=== PATIENT | male | born 1965 ===

== ENCOUNTER → 2025-07-12 10:19 | Outpatient (BNVA) | payer OTHER, SELFPAY | PROVIDERS: Referring Provider Family Medicine; Visit Provider Internal Medicine Cardiovascular Disease | DX: R07.9 Chest pain, unspecified (principal); I25.10 Atherosclerotic heart disease of native coronary artery without angina pectoris; E78.2 Mixed hyperlipidemia; Z82.49 Family history of ischemic heart disease and other diseases of the circulatory system; I77.810 Thoracic aortic ectasia; I45.10 Unspecified right bundle-branch block; I47.10 Supraventricular tachycardia, unspecified; Z87.891 Personal history of nicotine dependence | CPT/HCPCS: 99204 ==

== ENCOUNTER → 2025-08-23 09:30 | Outpatient (BNVA) | payer OTHER, SELFPAY | PROVIDERS: Referring Provider Family Medicine; Visit Provider Internal Medicine Cardiovascular Disease | DX: I25.118 Atherosclerotic heart disease of native coronary artery with other forms of angina pectoris (principal); E78.2 Mixed hyperlipidemia; R07.9 Chest pain, unspecified; Z82.49 Family history of ischemic heart disease and other diseases of the circulatory system; I77.819 Aortic ectasia, unspecified site; I45.10 Unspecified right bundle-branch block; I47.10 Supraventricular tachycardia, unspecified; Z87.891 Personal history of nicotine dependence | CPT/HCPCS: 36415; 80048; 85025; 85610; 93005; 99213 ==

== ENCOUNTER 2025-08-31 06:08 | Outpatient (CLI) | payer OTHER, SELFPAY ==
[2025-08-31] VITALS (17 sets, daily range): BP systolic 105–173; BP diastolic 67–125; PULSE 53–127; RESP 10–24; TEMP 36.4–37; O2SAT 94–98; BMI 33.3
--- NOTE | 2025-08-31 06:00 | XACV_ITS ---
Ht: 173 cm Wt: 99 kg BSA: 2.22 m2 Gender: Male : 1965 Any Known Allergies: Penicillins Exam Priority: Routine Indication(s): - Unstable angina Procedure(s): Procedure Description: Diagnostic procedure Procedure Description: PCI procedure Procedure Description: Left Heart Catheterization Procedure Description: Left ventriculography Procedure Description: Drug Eluting Coronary Stent Procedure Description: PTCA Procedure Description: Miscellaneous Procedure Description: ACT Procedure Description: Coronary Angiography Adolph MONTEIRO; Diagnostic Cath Status: Elective Diagnostic Findings * Left Main has no disease. * Left Anterior Descending has no disease. * Proximal Right Coronary Artery: severe 90% stenosis, JASBIR: 3 flow. * Mid Right Coronary Artery: obstructive 70% stenosis, JASBIR: 3 flow. * Mid Circumflex: obstructive 70% stenosis, JASBIR: 3 flow. * 1st Diagonal: severe 90% stenosis, JASBIR: 3 flow. * Coronary angiography shows right dominance. PCI Status: Elective PCI Indication: New Onset Angina <= 2 months Interventional Findings * Proximal Right Coronary Artery: 90% stenosis treated with a AB TREK 2.50X20 RX BALLOON, MDT R HOLLAND 3.0X15 SHELLI, and MDT NC EUPHORA RX [id number] BALLOON. 0% residual stenosis, JASBIR: 3 flow. * Mid Right Coronary Artery: 70% stenosis treated with a AB TREK 2.50X20 RX BALLOON, MDT R HOLLAND 3.0X38 SHELLI, and MDT NC EUPHORA RX [id number] BALLOON. 0% residual stenosis, JASBIR: 3 flow. Conclusions 1. There is severe coronary artery disease with two vessel disease. 2. Normal left ventricular systolic function. Ejection fraction of 55%. 3. Proximal Right Coronary Artery was treated with a Balloon, Drug Eluting Stent, and Balloon. 4. Mid Right Coronary Artery was treated with a Balloon, Drug Eluting Stent, and Balloon. Recommendations * 1-Return to inpatient for close monitoring and routine cath care 2-Risk factor modification for secondary prevention 3-Statin and aspirin 81 mg life-long, if tolerated 4-Patient was pre-loaded with 600 mg of Plavix, continue Plavix 75mg p.o. daily for at least one year. We will assess at the end of one year again to continue if further or not 5-Continue optimal medical management, assess diagonal and mid circumflex moderate lesion with stress test and 3 to 4 months on optimal medical management 6-Follow up with Dr. Farfan in four weeks and your primary care in 10 days. Diagnostic RX Recommendation: PCI w/o planned CABG Ventriculography Ejection Fraction: 55.0 % Pressures Phase:Rest AO : 134 / 85 ( 107 ) @ 9:09:00 AM 121 / 92 ( 108 ) @ 9:10:00 AM 144 / 93 ( 113 ) @ 9:30:00 AM 146 / 103 ( 124 ) @ 9:31:00 AM 148 / 102 ( 123 ) @ 9:31:00 AM 160 / 105 ( 127 ) @ 9:32:00 AM 136 / 110 ( 114 ) @ 9:35:00 AM 141 / 108 ( 122 ) @ 9:46:00 AM 321 / 276 ( 163 ) @ 9:49:00 AM 193 / 105 ( 139 ) @ 9:58:00 AM 196 / 105 ( 146 ) @ 9:58:00 AM LV : 185 / 13 / 34 @ 9:56:00 AM 196 / 6 / 44 @ 9:58:00 AM Valves Phase:DefaultPhase AV : 0.0 @ 9:09:36 AM Clinical Evaluation EBL: 5mL-10mL Procedural Details Procedure Consent Obtained. Pre-Procedure Time Out. Identified patient by full name and date of as verbalized by the patient/guarantor. Does the consent match the physician's order: Yes. Accurate & Complete Informed Consent: Yes. Inpatient/Outpatient History & Physical on Chart: Yes. If H&P is completed, is and addenduem needed: No; If yes, is the addendum complete: N/A. Visualize and Verify Site with Patient/Guarantor: N/A. Relevant Radiology Images available: N/A. The risks, benefits, and alternatives of sedation and/or procedure were discussed by physician. The patient agrees to continue. Procedure started. [facility] Clinical Fraility Score: 3: Managing Well. 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 Chest Pain Symptom Assessment: Typical Angina Symptoms. Cardiovascular Instability: No. Correct patient, site and procedure confirmed by cath team. Current diagnosis: Angina; Abnormal CTA. PERRLA. Strong, equal hand auto body straightener bilaterally. Lungs clear x 5 lobes. IV Site on Arrival: 20 gauge in the left anticubital. IV Fluids: 0.9% NaCl at KVO. 0 mL infused prior to labor relations director. Pre Procedural Pulses: bilateral posterior tibial was 2+. Pre Procedural Pulses: bilateral dorsalis pedis was 2+. Pre Procedural Pulses: bilateral radial was 2+. Oxygen started at 3liters/min via nasal canula. right groin was prepped with chloroprep then draped in the usual sterile fashion. right radial was prepped with chloroprep then draped in the usual sterile fashion. Physician notified. Baseline sample Acquired. HR: 53 BPM. Physician arrived. Physician scrubbed in. Immediate Pre-Procedure Time Out. Correct Patient: Yes; Correct Procedure: Yes; Correct Site: Yes; Correct Patient Position: Yes; Correct Supplies: Yes; Dried Flammable Prep: Yes; Blood Products Available: N/A;. Time out completed. Lidocaine 1% infiltrated to the right radial. Arterial access obtained. A 5 tunisian TIG catheter in over wire. Multiple views taken of left coronary artery. Catheter redirected to the RCA. Multiple views taken of right coronary artery. Catheter removed over the exchange wire. 6 tunisian JR 4 guide catheter was inserted over the wire. Guide seated in the RCA. ACT drawn. Results 235 seconds. Therapeutic limits - pre-heparin administration 90-150 seconds and monitoring heparin during a vascular procedure >250 seconds. AP pads applied. Runthrough guidewire was advanced through the guide catheter to lesion in the prox RCA. Guidewire advanced across lesion. Inflation number : 1 A AB TREK 2.50X20 RX BALLOON was prepped and advanced across the Mid RCA , then inflated to 12 JEREMIAH for 0:16 seconds. Inflation number: 1 The AB TREK 2.50X20 RX BALLOON was reinflated across the Prox RCA, to 12 JEREMIAH for 0:14 seconds. Inflation number: 2 The AB TREK 2.50X20 RX BALLOON was reinflated across the Prox RCA, to 12 JEREMIAH for 0:15 seconds. Balloon out. Inflation Number : 2 A MDT R HOLLAND 3.0X38 SHELLI -Lot Number# [id number] EXP 02/05/2028 was prepped and advanced across the Mid RCA. The stent was deployed at 12 JEREMIAH for 0:11 seconds. Stent balloon out over wire. Results checked. Anesthesia notified for assistance with management. Patient pulled wire and guide out during procedure. MD attempting to reposition. Guide seated in the RCA. Runthrough guidewire was advanced through the guide catheter to lesion in the prox RCA. Guidewire advanced across lesion. Inflation Number : 3 A MDT R HOLLAND 3.0X15 SHELLI -Lot Number# [id number] EXP 03/10/2028 was prepped and advanced across the Prox RCA. The stent was deployed at 14 JEREMIAH for 0:13 seconds. Results checked. Stent balloon out over wire. Inflation number : 3 A MDT NC EUPHORA RX 3.76M02HL BALLOON was prepped and advanced across the Mid RCA , then inflated to 14 JEREMIAH for 0:13 seconds. Anesthesia here to sedate and treat. Inflation number: 4 The MDT NC EUPHORA RX 3.34J09YN BALLOON was reinflated across the Prox RCA, to 14 JEREMIAH for 0:12 seconds. Inflation number: 5 The MDT NC EUPHORA RX 3.29R71JT BALLOON was reinflated across the Prox RCA, to 16 JEREMIAH for 0:10 seconds. Inflation number: 6 The MDT NC EUPHORA RX 3.43Y67HJ BALLOON was reinflated across the Prox RCA, to 16 JEREMIAH for 0:12 seconds. Balloon out. Results checked. ACT drawn. Results 383 seconds. Therapeutic limits - pre-heparin administration 90-150 seconds and monitoring heparin during a vascular procedure >250 seconds. Results checked. Wire out. Results checked. Catheter removed over the exchange wire. A 5 tunisian Angled Pig catheter in over wire. EDP Sample taken: LV 185/13,34; HR: 55 BPM; SpO2: 99%. Hand injection of the LV performed by THE md. Pullback taken: LV 196/6,44; AO 193/105(139); Mean: , Peak to Peak: 0mmHg, SEP: ; HR: 56 BPM; SpO2: 99%. Catheter removed over the wire. Physician review of films. Physician scrubbed out. Post-op diagnosis: Significant mid rca stenosis treated with shelli. Complications: none. [id number]. Contrast type used: Visipaque 320 mgI/mL, 200 mL bottle. A TR Band was successful obtaining hemostatsis at the Right Radial artery insertion site. TR band placed. Hemostasis obtained. PERRLA. Strong, equal hand auto body straightener bilaterally. No VTE prophylaxis required. Medication's Wasted: Lidocaine 1% = 18 ml , Epi = 1 mg , Nitro = 49.6 mg , Heparin = 2000 units, Fentany = 50 mcg, Atropine 1 mg. Total IV fluids: 350 mL. Fluoro: 11:05. Estimated blood loss: 5mL-10mL. Responsiveness - Normal response to verbal stimuli; alert and oriented, PERRLA. Airway - Unaffected, no intervention required; spontaneous ventilation. Circulation: W/N/L, pulses unchanged. Nausea/Vomiting: No. Procedure completed. Patient transferred by bed to 1st floor. Admit Source: Out Patient. Current Diagnosis : Unstable angina. Vital chart was stopped. Access Site Site: Right Radial artery Sheath Size: 6 Fr Hemostasis Method: TR Band Hemostasis Success: Successful Procedure Medications Start: 7:48 AM Stop: 7:48 AM Medication: Fentanyl Amount: 50 mcg Route: I.V. Start: 7:52 AM Stop: 7:52 AM Medication: Versed Amount: 1 mg Route: I.V. Start: 8:00 AM Stop: 8:00 AM Medication: Versed 1 mg and Fentanyl 25 mcg Amount: 1 Route: I.V. Start: 8:06 AM Stop: 8:06 AM Medication: Nitrogylcerin Amount: 200 mcg Route: I.A. Start: 8:08 AM Stop: 8:08 AM Medication: Heparin Amount: 5000 units Route: I.V. Start: 8:17 AM Stop: 8:17 AM Medication: Plavix Amount: 600 mg Route: P.O. Start: 8:18 AM Stop: 8:18 AM Medication: Versed Amount: 1 mg Route: I.V. Start: 8:23 AM Stop: 8:23 AM Medication: Heparin Amount: 4000 units Route: I.V. Start: 8:29 AM Stop: 8:29 AM Medication: Atropine Amount: 1 mg Route: I.V. Start: 8:30 AM Stop: 8:30 AM Medication: Versed 1 mg and Fentanyl 25 mcg Amount: 1 Route: I.V. Start: 8:30 AM Stop: 8:30 AM Medication: 0.9% Saline Amount: 250 ml Route: I.V. bolus Start: 8:37 AM Stop: 8:37 AM Medication: Fentanyl Amount: 50 mcg Route: I.V. Start: 8:49 AM Stop: 8:49 AM Medication: Nitrogylcerin Amount: 200 mcg Route: I.C. I, the attending physician, have reviewed and verified all procedure medications. Yes, all medications given per verbal order History/Risk Factors Hypertension: No Dyslipidemia: No Peripheral Arterial Disease (PAD): No Myocardial Infarction (SC): No Obesity: No Renal Disease: No Tobacco Use: Former Prior Interventions PCI: Yes CABG: No Valve Surgery: No Date of PCI: 08/31/2025 Report Signatures Finalized by Kailee Farfan MD on 09/24/2025 10:04 PM
--- NOTE | 2025-08-31 07:53 | W.PM.OPSUD ---
Surgery/Procedure H&P Update DATE OF PROCEDURE: August 31, 2025 DATE H&P PERFORMED: 08/23/25 H&P UPDATE INFORMATION: I have reviewed H&P completed within last 30 days, I have examined patient prior to procedure and No changes to prior documentation PREOP DIAGNOSIS: Angina, abnormal CT PRIMARY INDICATION FOR PROCEDURE: Angina, calcified coronaries on the CT, abnormal stress test outside hospital but no record available to me. Patient has been referred to us with history of smoking and worsening of chest pain along with shortness of breath which is increased over the. Time not to the extent that every time he has mild to moderate exertion he has chest pain. Patient underwent chest CT to rule out pulmonary embolism it was noted that he has calcified artery it is the reason patient has been referred. PLANNED PROCEDURE: Operation Date: 08/31/25 07:00 Proposed Procedures p Cardiac Catheterization - C w/wo LV & Coros(Left) - Kailee Farfan MD PATIENT REASSESSED PRIOR TO SEDATION, WITH NO CHANGE NOTED: Yes PHYSICAL EXAM: alert, oriented x 3, clear to auscultation bilaterally, regular rate & rhythm and operative site marked AIRWAY EVAL/ANESTHESIA PLAN: ASA II, Risks, benefits & alternatives of sedation and/or procedure discussed and Patient agrees to continue as planned ADDITIONAL INFORMATION: All risk-benefit and alternative for the procedure has been explained to the patient. Patient understand 2% risk of stroke major bleed. Patient restand 5% risk of minor bleeding oozing infection hematoma contrast-induced nephropathy vascular surgery urgent emergent CT surgery. Patient agrees to it and would like to proceed with it
--- NOTE | 2025-08-31 09:06 | PM.PROC ---
Procedure Note: Date of procedure: 08/31/25 Pre-procedure diagnosis: Unstable angina, coronary artery disease Post-procedure diagnosis: same Procedure: Left heart cath was performed. Left main normal LAD has luminal irregularity Diagonal branch is 80% proximal stenosis it is small caliber but long vessel LCx is moderate-sized in caliber vessel without significant stenosis RCA is a dominant vessel with proximal and mid tandem long 80 to 90% stenosis it is the culprit vessel PCI to proximal to mid RCA with drug-eluting stent postdilated with noncompliant balloon with 2 stents in overlapping fashion. Both stents were postdilated with noncompliant balloon Please note that on the table patient became uncooperative and started pulling sheath. Since culprit vessel was RCA fixed it. Diagonal branches incidental finding we will see how he does with medical management otherwise we will bring him back with anesthesia backup for staged PCI to diagonal in 15 days. Plan: Patient has been loaded with 600 mg Plavix and 325 mg of aspirin. Continue aspirin and statin beta-magaly and Plavix. IV fluid 100 mL/h. Possible discharge tomorrow Full note to be dictated. Coding Level of Care Code Acute Code for Ag Gates
--- NOTE | 2025-08-31 09:09 | ANES.PREANE2 ---
Pre-Anesthetic Assessment Height/Weight: Height 5 ft 8 in Weight 219 lb Temp Pulse Resp BP Pulse Ox O2 Del Method 98.0 F 65 16 157/92 98 Room Air 08/31/25 06:40 08/31/25 06:40 08/31/25 06:40 08/31/25 06:40 08/31/25 06:40 08/31/25 06:40 Preop Diagnosis: Angina, abnormal CT Operation Date: 08/31/25 07:00 Proposed Procedures p Cardiac Catheterization - LHC w/wo LV & Coros(Left) - Kailee Farfan MD Anesthetic Plan ASA status: 4 Anesthesia: MAC Other: I was called by the Janitorial Assistant as patient arrived for an outpatient cath procedure today and was having difficulty tolerating procedure. History of hypertension on metoprolol GERD, controlled with Pepcid. Patient had already received 4 Versed and 150 mcg of fentanyl prior to my arrival Patient was having difficulty sitting still upon my arrival. However he was not able to answer any of my questions. Proceeded with sedation at that time due to the emergency of the situation ASA for Medications/Allergies Home Medications ?Medication ?Instructions ?Recorded ?Confirmed ?Last Taken ?Type aspirin 81 mg tablet,delayed 81 mg PO DAILY 07/12/25 08/31/25 08/31/25 04:30 History release (Adult Aspirin Regimen) cholecalciferol (vitamin D3) 25 50 mcg PO DAILY 07/12/25 08/31/25 08/30/25 09:00 History mcg (1,000 unit) capsule famotidine 20 mg tablet 20 mg PO BID 07/12/25 08/31/25 08/30/25 20:00 History omega 9-zdl-pif-fish oil 1,200 mg 2,400 cap PO DAILY 07/12/25 08/31/25 08/30/25 09:00 History (144 mg-216 mg) capsule atorvastatin 40 mg tablet (Lipitor) 40 mg PO DAILY #90 tabs 07/13/25 08/31/25 08/30/25 20:00 Rx metoprolol succinate 25 mg 25 mg PO DAILY #90 tabs 07/13/25 08/31/25 08/30/25 20:00 Rx tablet,extended release 24 hr Allergies Allergy/AdvReac Type Severity Reaction Status Date / Time penicillin G Allergy ALGY-Rash Verified 08/23/25 09:34 Current Medications Generic Name Dose Route Start Last Admin Trade Name Freq PRN Reason Stop Dose Admin Sodium Chloride 1,000 mls @ 50 mls/hr 08/31/25 06:00 08/31/25 06:50 Sodium Chloride 0.9% IV 09/01/25 01:59 Not Given .Q20H ONE PFSH Anesthesia Family History (Updated 07/12/25 @ 10:49 by Dacia Curtis LPN) Father CAD (coronary artery disease) Mother Diabetes Hypertension Denies family history of Cancer Social History (Updated 07/12/25 @ 10:49 by Dacia Curtis LPN) Smoking and tobacco/nicotine status: former use of tobacco/nicotine Alcohol intake: current Alcohol intake frequency: holidays/special occasions only Substance/Drug Use: current Substance/Drug use frequency: daily
--- NOTE | 2025-08-31 09:11 | ANE.PACU2 ---
Inpatient post-anesthesia follow up: Airway intact: Yes Vital signs: Temperature 98.0 F Pulse Rate 65 Respiratory Rate 16 Blood Pressure 157/92 Pulse Oximetry 98 Oxygen Delivery Me thod Room Air Oxygen Flow Rate Fraction of Inspir ed Oxygen Hydration adequate: Yes Nausea and vomiting: No Pain level: 2 Mental status: Baseline
--- NOTE | 2025-08-31 09:30 | PC.NURSE ---
Dr wahl made aware that patient stated he was in a lot of pain, dr wahl verbally ordered 2mg morphine ivp.
--- NOTE | 2025-08-31 09:33 | ECG_ITS ---
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 Measurements Intervals [place] Rate: 127 P: 0 MI: 0 QRS: 63 QRSD: 145 T: -42 QT: 336 QTc: 489 Interpretive Statements ATRIAL FIBRILLATION WITH RAPID VENTRICULAR RESPONSE RIGHT BUNDLE BRANCH BLOCK [120+ ms QRS DURATION, UPRIGHT V1, 40+ ms S IN I/aVL/V4/V5/V6] Compared to ECG 08/23/2025 09:49:52 Sinus rhythm no longer present Electronically Signed On 08-31-2025 18:50:01 CDT by Gurvinder Stephen M.D. [id number]
[2025-08-31] MEDS: morphine 4 mg/mL SDV 1 mL 2 MG IVP (09:51)
[2025-08-31] MEDS: fentaNYL 50 mcg/mL INJ 2mL IVP (10:32)
[2025-08-31] MEDS: nitroglycerin drip 50 MG/250 ML PREMIX IV (10:54)
--- NOTE | 2025-08-31 12:14 | PC.NURSE ---
patient got back from laboratory secretary at 0920 and had 10/10 pain. It appeared patient had gone into afib rvr. Dr Farfan notified and he ordered 2mg IVP morphine and an ekg. Dr Farfan was shown iv and he ordered diltiazem gtt/ Patient then received fentanyl, 50mcg ivp for continuing pain. Diltiazem started at 15 and nitro gtt was also started at 10. TR band removed at 1146. Patient back in sinus rhythm at approximately 12pm. Diltiazem and nitro stopped. Patient now resting in bed, eating lunch at bedside. HR is currently 60 and blood pressure is 106/85.
[2025-08-31] MEDS: ondansetron 2 mg/ML SDV 2 mL 4 MG IVP (16:27)
[2025-09-01 01:16] VITALS: BP 107/74; PULSE 54; RESP 17; O2SAT 98
[2025-09-01 02:00] VITALS: PULSE 60; RESP 22; O2SAT 98
[2025-09-01 03:16] LABS: Hematocrit 41.2 % (37-53); Hemoglobin 14.80 g/dL (11.27-16.99); Mean Corpuscular HGB Conc 35.9 g/dL (30-55); Mean Corpuscular Hemoglobin 30.7 pg (27-33); Mean Corpuscular Volume 85.5 fl (82-101); Nucleated Red Blood Cells % 0 %; Platelet Count 199 10^3/cmm (157-399); Red Blood Count 4.82 10^6/uL (3.85-5.65); White Blood Count 12.51 10^3/uL (3.29-11.43)
[2025-09-01 03:54] LABS: Anion Gap 17.8 (5-19); Blood Urea Nitrogen 10 mg/dL (8-23); Calcium 9.1 mg/dL (8.5-10.5); Carbon Dioxide 23 mmol/L (22-29); Chloride 106 mmol/L (98-107); Creatinine Clr Calc Pharmacy 87.5060; Glucose 132 mg/dL (65-115); Osmolality Calculated 297 mOsm/kg (285-295); Potassium 3.8 mmol/L (3.5-5.1); Sodium 143 mmol/L (136-145)
[2025-09-01 05:11] VITALS: BP 162/91; PULSE 60; RESP 22; TEMP 36.7; O2SAT 98
[2025-09-01 07:45] VITALS: BP 140/87; PULSE 71; RESP 22; TEMP 36.6
--- NOTE | 2025-09-01 10:48 | P.DS_ITS ---
<Statement entered by Kailee Farfan MD - 09/10/25 19:57> Patient was evaluated and cared for in conjunction with an advanced practice practitioner. I personally have not examined the patient but reviewed the chart and all pertinent data including imaging, telemetry, and laboratory results. I discussed the patient in detail with the advanced practice practitioner. Please see their note for complete H&P testing result and agreed upon plan of care for the patient. Discharge Providers Date of Admission: 08/31/2025 Date of Discharge: September 01, 2025 Attending Provider at Admission: Kailee Farfan MD Attending Provider at Discharge: Kailee Farfan MD Primary Care Provider: Brian Diamond MD Reason for Visit Reason for Visit: I25.10 Brief History: 60-year-old male with history of hyperli pidemia, smoking quit in 2003, SVT demonstrated on event monitor in February of this year, hospitalized in [place] in May of this year for chest pain where CTA of the chest showed coronary calcification and coronary angiogram was recommended. He returned home to [place] to have the procedure completed. Hospital Course Hospital Course He was brought for coronary angiogram yesterday, revealing small caliber diagonal branch with proximal 80% stenosis, moderate-sized caliber left circumflex no significant stenosis, dominant RCA proximal and mid tandem 80 to 90% stenosis treated with overlapping GALI x 2. He required anesthesia assistance becoming uncooperative and pulling at the sheath while on the table. Plan is to bring him back in 2 weeks for staged PCI with anesthesia only if chest pain returns, otherwise continue medical management. When he returned to [facility] for recovery he developed chest pain radiating up into the jaw bilaterally, developed atrial fibrillation with RVR which was a new onset of this rhythm. He converted to sinus rhythm with diltiazem infusion, chest pain resolved with nitroglycerin infusion and administration of fentanyl. He has not had any recurrence of arrhythmia or chest pain overnight. No complications with right radial cath site. Will obtain echocardiogram this morning before discharge. Renal function is normal. Will maintain him on aspirin and Plavix, and atorvastatin 40 mg daily. Will order event monitor for 30 days to observe for recurrence of paroxysmal atrial fibrillation or his previous diagnosis of SVT. Follow-up with Dr. Alvarez in 1 month. Physical Exam Const: COMMON NORMALS: no acute distress and patient oriented x3 GENERAL APPEARANCE: cooperative and comfortable ORIENTATION/CONSCIOUSNESS: Yes awake, Yes oriented to person, Yes oriented to place and Yes oriented to time Chest: COMMONS NORMALS: normal inspection of the chest and normal palpation of entire chest wall CHEST: Yes Symmetrical chest wall rise Resp: COMMON NORMALS: normal respiratory effort, No retractions, No use of accessory muscles and clear to auscultation bilaterally EFFORT & INSPECTION: Yes symmetric chest movement AUSCULTATION: clear to auscultation bilaterally Cardio: COMMON NORMALS: regular rate, regular rhythm, S1 normal heart sound present, S2 normal heart sound present, No gallops present (Cardio), No clicks present (Cardio), No murmurs present (Cardio) and No rub (Cardio) RATE: regular rate RHYTHM: regular rhythm HEART SOUNDS: S1 normal heart sound present and S2 normal heart sound present PERIPHERAL PULSES: radial pulses present Extremity: COMMON NORMALS: no pedal edema Neuro: COMMON NORMALS: patient oriented x3 and moves all extremities SENSORIUM/ORIENTATION: Yes oriented to person, Yes oriented to place and Yes oriented to time Discharge Data Studies Completed and Pending Pending at discharge Category Date Time Status 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 Routine Exams 08/31/25 06:00 Taken Laboratory Results WBC 12.51 10^3/uL (3.29-11.43) H 09/01/25 03:00 RBC 4.82 10^6/uL (3.85-5.65) 09/01/25 03:00 Hgb 14.80 g/dL (11.27-16.99) 09/01/25 03:00 Hct 41.2 % (37-53) 09/01/25 03:00 MCV 85.5 fl (82-101) 09/01/25 03:00 MCH 30.7 pg (27-33) 09/01/25 03:00 MCHC 35.9 g/dL (30-55) 09/01/25 03:00 RDW 12.4 % (12.1-15.1) 09/01/25 03:00 Plt Count 199 10^3/cmm (157-399) 09/01/25 03:00 MPV 10.4 fL (7.4-10.4) 09/01/25 03:00 Neut % (Auto) 77.2 % 09/01/25 03:00 Lymph % (Auto) 13.9 % 09/01/25 03:00 [place] % (Auto) 7.8 % 09/01/25 03:00 Eos % (Auto) 0.5 % 09/01/25 03:00 Baso % (Auto) 0.3 % 09/01/25 03:00 Neut # (Auto) 9.65 10^3/uL (1.8-7.7) H 09/01/25 03:00 Lymph # (Auto) 1.7 10^3/uL (0.8-4.8) 09/01/25 03:00 [place]eman # (Auto) 1.0 10^3/uL (0.2-0.9) H 09/01/25 03:00 Eos # (Auto) 0.1 10^3/uL (0.0-0.8) 09/01/25 03:00 Baso # (Auto) 0.0 10^3/uL (0.0-0.1) 09/01/25 03:00 Nucleated RBC % (auto) 0 % 09/01/25 03:00 Nucleated RBCs # 0.0 /100WBC 09/01/25 03:00 Sodium 143 mmol/L (136-145) 09/01/25 03:00 Potassium 3.8 mmol/L (3.5-5.1) 09/01/25 03:00 Chloride 106 mmol/L (98-107) 09/01/25 03:00 Carbon Dioxide 23 mmol/L (22-29) 09/01/25 03:00 Anion Gap 17.8 (5-19) 09/01/25 03:00 BUN 10 mg/dL (8-23) 09/01/25 03:00 Creatinine 1.0 mg/dL (0.7-1.2) 09/01/25 03:00 GFR Calculation 75.7 mL/min (90-130) L 09/01/25 03:00 Glucose 132 mg/dL (65-115) H 09/01/25 03:00 Calculated Osmolality 297 mOsm/kg (285-295) H 09/01/25 03:00 Calcium 9.1 mg/dL (8.5-10.5) 09/01/25 03:00 Vitals Last Vital Signs Temp 97.8 F 09/01/25 07:45 Pulse 71 09/01/25 07:45 Resp 22 H 09/01/25 07:45 BP 140/87 09/01/25 07:45 Pulse Ox 98 09/01/25 05:11 O2 Del Method Room Air 09/01/25 05:11 Discharge Plan Discharge Patient Disposition: Home Prescriptions: New clopidogrel 75 mg Tablet 75 mg PO DAILY Qty: 90 3RF nitroglycerin 0.4 mg Tablet, Sublingual 0.4 mg sublingual Q5M PRN (Reason: Chest Pain) Qty: 30 1RF Continued aspirin [Adult Aspirin Regimen] 81 mg tablet,delayed release (DR/EC) 81 mg PO DAILY famotidine 20 mg tablet 20 mg PO BID cholecalciferol (vitamin D3) 25 mcg (1,000 unit) capsule 50 mcg PO DAILY omega 0-pal-lco-fish oil 1,200 (144-216) mg capsule 2,400 cap PO DAILY metoprolol succinate 25 mg tablet extended release 24 hr 25 mg PO DAILY Qty: 90 3RF atorvastatin [Lipitor] 40 mg tablet 40 mg PO DAILY Qty: 90 3RF Rx Instructions: Take 1 tablet daily at bedtime Discharge Order = DC NOW: Discharge Order (Routine); Ordered 09/01/25 Ordered By: Rosalie Stanley Other Ambulatory Orders: MCT/Event Monitor 30 Days (Routine) Timeframe: 1 Day Facility: [facility] - Location: Radiology Ordered By: Rosalie Stanley Referrals: Brian Diamond MD [Primary Care Provider, Family Practice] Referral Note: Office will call patient with appt time, [facility] Carlos Alvarez MD [Physician, Cardiology] - 09/28/25 9:00 am Diet: Cardiac Activity: Increase activity as tolerated Patient Instructions: Coronary Angioplasty (DC) Activity Restrictions/Additional Instructions: No lifting over 5 pounds with the right arm for the next 4 days. Print Language: Unknown Discharge Attestations Time Spent in Discharge Care*: less than 30 min Quality Metrics Clinical Quality Measures [ No reported AMI, CVA or VTE this stay] Coding Level of Care Code Acute Code for Chg Kody
--- NOTE | 2025-09-01 10:56 | USCV_ITS ---
López Earnest Age: 60 Gender: M : 1965 Exam Date: 09/01/2025 13:55 Ordering Phys: Rosalie Stanley Technologist: Naun Paniagua Exam Location: [facility] [place] Site Location: [Add Site Location] Indication: post cath, atrial fibrillation BP: 151 / 85 HR: 56 Rhythm: Sinus Technical Quality: Adequate MEASUREMENTS (Male / Female) Normal Values 2D ECHO LVOT Diameter 2.0 cm LV Ejection Fraction MOD 4C 69.1 % LV Ejection Fraction MOD 2C 60.9 % LV Ejection Fraction 2C AL 60.2 % LA Diameter 3.3 cm RA Systolic Volume 4C AL 35.6 ml RA Systolic Volume 4C MOD 34.9 ml LA Sys Volume AL 33.0 cm cubed LA Sys Volume Index AL 14.9 cm cubed/m squared Aorta at Sinotubular Diameter 2.7 cm IVC Diameter 1.6 cm M-MODE LA Ao Ratio MM 1.1 AV Cusp Separation MM 1.9 cm DOPPLER AV Peak Velocity 142.7 cm/s LVOT Peak Velocity 107.0 cm/s AV Area Cont Eq vti 3.6 cm squared AV Area Cont Eq pk 2.4 cm squared MV Peak Velocity 82.0 cm/s MV Area PHT 3.6 cm squared Mitral E to A Ratio 0.9 TV Peak Velocity 243.5 cm/s TR Peak Velocity 299.0 cm/s TR Peak Gradient 35.8 mmHg TR Mean Velocity 240.0 cm/s TR Mean Gradient 24.7 mmHg TR Velocity Time Integral 66.3 cm PV Peak Velocity 82.7 cm/s RV Ejection Time 0.3 s FINDINGS Left Ventricle Normal LV size and ejection fraction of 60%. Mild concentric left ventricular hypertrophy.Grade I/IV diastolic dysfunction (abnormal relaxation filling pattern), normal to mildly elevated filling pressures. Right Ventricle Mildly increased right ventricular size. Normal right ventricular systolic function. Right Atrium Normal right atrial size. Left Atrium Normal left atrial size. IA Septum Normal appearance of the interatrial septum. Mitral Valve No gross abnormalities noted Aortic Valve No gross abnormalities noted Tricuspid Valve Trace of tricuspid regurgitation. Estimated pulmonary artery peak systolic pressure 39 mmHg Pulmonic Valve Pulmonic valve not well visualized. Pericardium No pericardial effusion. Aorta Normal aortic annulus size. IVC Normal inferior vena cava. CONCLUSIONS Normal LV size and ejection fraction of 60%. Mild concentric left ventricular hypertrophy.Grade I/IV diastolic dysfunction (abnormal relaxation filling pattern), normal to mildly elevated filling pressures. Trace of tricuspid regurgitation. Estimated pulmonary artery peak systolic pressure 39 mmHg. Mildly increased right ventricular size. Normal right ventricular systolic function. There is no pericardial effusion. There are no intracardiac masses. No similar previous studies are available for comparison Dr Gurvinder Stephen MD [facility] (Electronically Signed) Final Date: 03 September 2025 19:16 S
[2025-09-01 11:53] VITALS: BP 151/85; PULSE 65; RESP 16; TEMP 36.5
== END 2025-09-01 15:10 | disposition home or self-care (01) ==
LOC: CCL 06:12 → CSU 12:47
PROVIDERS: PCP Family Medicine Geriatric Medicine; Visit Provider Internal Medicine Cardiovascular Disease
DX: I25.118 Atherosclerotic heart disease of native coronary artery with other forms of angina pectoris (principal); Z87.891 Personal history of nicotine dependence; Z79.82 Long term (current) use of aspirin; Z82.49 Family history of ischemic heart disease and other diseases of the circulatory system; K21.9 Gastro-esophageal reflux disease without esophagitis; E78.5 Hyperlipidemia, unspecified; R00.2 Palpitations
CPT/HCPCS: 36415; 80048; 85025; 85347; 93005; 93306; 93454; 93458; 96374; 99152; 99153; C1725; C1769; C1874; C1887; C1894; C9600; J0461; J1644; J2250; J2270; J2405; J2704; J3010; J3490; J7030; J9999; Q0163; Q9967

== ENCOUNTER 2025-09-20 11:20 | Inpatient (IN) | payer OTHER, SELFPAY ==
--- NOTE | 2025-09-20 11:11 | ECG_ITS ---
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 Measurements Intervals [place] Rate: 66 P: 40 DC: 131 QRS: 22 QRSD: 146 T: 26 QT: 414 QTc: 436 Interpretive Statements SINUS RHYTHM RIGHT BUNDLE BRANCH BLOCK [120+ ms QRS DURATION, UPRIGHT V1, 40+ ms S IN I/aVL/V4/V5/V6] ST ELEVATION, CONSIDER INFERIOR INJURY [MARKED ST ELEVATION W/O NORMALLY INFLECTED T-WAVE IN II/aVF] ACUTE UT Compared to ECG 08/31/2025 09:33:54 ST (T wave) deviation now present Myocardial infarct finding now present Atrial fibrillation no longer present Electronically Signed On 09-20-2025 16:55:23 CDT by Gurvinder Stephen M.D. [email or web address]
[2025-09-20] MEDS: heparin 5,000 unit/mL INJ 1 mL 4000 UNIT IVP (11:24)
[2025-09-20 11:25] VITALS: BP 147/96; PULSE 73; RESP 18; TEMP 36.9; O2SAT 100
--- NOTE | 2025-09-20 11:27 | W.ED.CHESTPA ---
HPI - Chest Pain General: Chief Complaint: Chest Pain Stated Complaint: STEMI Alert History of Present Illness: 58-year-old male with a known history of coronary disease he was brought in for elective cath about 3 weeks ago at that time he was found to have proximal RCA lesion that was treated with 2 overlapping stents. He did have a diagonal that had some stenosis but did not appear to be a culprit lesions. This morning while he was doing some mild exertional work he began to have chest pain he took a nitro and called EMS. EMS called as a STEMI based on his initial twelve-lead EKG he was given another nitro spray and an inch of Nitropaste attached he had complete resolution of his symptoms at that time. He states he has still been taking his Plavix. He is pain-free at the time of arrival. STEMI alert had been called Dr. Park arrived shortly after the patient arrived in the emergency room compared on repeat EKG done in the emergency room with EKG done previously on August [address] Park did not feel this represented an acute ST elevation CA and recommended serial troponins. Associated symptoms: Deny abdominal pain, dyspnea or fever(s) Related Data Home Medications ?Medication ?Instructions ?Recorded ?Confirmed aspirin 81 mg tablet,delayed 81 mg PO DAILY 07/12/25 09/20/25 release (Adult Aspirin Regimen) cholecalciferol (vitamin D3) 25 50 mcg PO DAILY 07/12/25 09/20/25 mcg (1,000 unit) capsule famotidine 20 mg tablet 20 mg PO BID 07/12/25 09/20/25 omega 5-kmk-cuj-fish oil 1,200 mg 2,400 cap PO DAILY 07/12/25 09/20/25 (144 mg-216 mg) capsule atorvastatin 40 mg tablet (Lipitor) 40 mg PO BEDTIME 09/20/25 09/20/25 Previous Rx's ?Medication ?Instructions ?Recorded metoprolol succinate 25 mg 25 mg PO DAILY #90 tabs 07/13/25 tablet,extended release 24 hr clopidogrel 75 mg tablet 75 mg PO DAILY #90 tabs 09/01/25 nitroglycerin 0.4 mg sublingual 0.4 mg sublingual Q5M PRN Chest 09/01/25 tablet Pain #30 tabs Allergies Allergy/AdvReac Type Severity Reaction Status Date / Time penicillin G Allergy ALGY-Rash Verified 08/23/25 09:34 Review of Systems Const: Denies: fever(s) or chills Card: Reports: chest pain and dyspnea on exertion Resp: Denies: dyspnea GI: Denies: abdominal pain : Denies: dysuria, urinary frequency or urinary urgency Musc: Denies: neck pain or back pain Skin/Breast: Denies: rash PFSH ED PFSH: Family History Father CAD (coronary artery disease) Mother Diabetes Hypertension Denies family history of Cancer Social History (Updated 09/20/25 @ 19:41 by Crow Jacobs MD) Smoking and tobacco/nicotine status: former use of tobacco/nicotine Alcohol intake: current Alcohol intake frequency: holidays/special occasions only Substance/Drug Use: current Substance/Drug use frequency: daily Additional social history: Patient wants full code as discussed with Crow Jacobs MD on 09/20/2025 Physical Exam Const: COMMON NORMALS: no acute distress GENERAL APPEARANCE: cooperative and comfortable ORIENTATION/CONSCIOUSNESS: Yes awake, Yes oriented to person, Yes oriented to place and Yes oriented to time HENMT: COMMON NORMALS: normocephalic, atraumatic and hearing grossly normal bilaterally HEAD & SCALP: normocephalic and atraumatic Resp: COMMON NORMALS: normal respiratory effort, No retractions, No use of accessory muscles and clear to auscultation bilaterally AUSCULTATION: clear to auscultation bilaterally Cardio: COMMON NORMALS: regular rate, regular rhythm and No murmurs present (Cardio) RATE: regular rate RHYTHM: regular rhythm GI: COMMON NORMALS: Soft to palpation and No hepatosplenomegaly present AUSCULTATION: Yes normoactive bowel sounds PALPATION: Yes Soft to palpation, No Tenderness to palpation present (GI), No Guarding due to palpation present (GI) and Yes No hepatosplenomegaly present Extremity: COMMON NORMALS: normal to inspection, capillary refill normal, no clubbing, cyanosis or edema, no calf tenderness and no pedal edema Neuro: SENSORIUM/ORIENTATION: Yes oriented to person, Yes oriented to place and Yes oriented to time Skin: COMMON NORMALS: no rashes or lesions noted GENERAL SKIN EXAM: no rashes or lesions noted Course Vital Signs: Vital signs: Vital Signs Temperature 98.0 F 09/21/25 08:50 Pulse Rate 70 09/21/25 13:15 Respiratory Rate 13 09/21/25 13:15 Blood Pressure 112/84 09/21/25 12:00 Pulse Oximetry 99 09/21/25 13:15 Oxygen Delivery Me thod Room Air 09/21/25 05:05 MDM - Chest Pain Medical Decision Making Patient had a few episodes of bradycardia after he arrived here took the nitro off he has not had any further symptoms. Reviewing his previous angiogram he had a diagonal off his RCA that was stenotic but was not felt to be a culprit lesion so that was not treated at the time of his initial angiography. Dr. Park did not feel that this represented a STEMI based on reviewing old EKGs and today's EKG he did recommend observation and he would consult and consider repeat angiography if felt to be appropriate discussed with patient he is agreeable orders written. Admit to hospitalist consult cardiology. Patient heparinized per cardiology's recommendation. Medical Records I reviewed the patient's medical records. Lab Data I reviewed the patient's lab results. 09/20/25 13:50 09/20/25 13:50 Laboratory Results WBC 8.64 10^3/uL (3.29-11.43) 09/20/25 13:50 RBC 4.71 10^6/uL (3.85-5.65) 09/20/25 13:50 Hgb 14.30 g/dL (11.27-16.99) 09/20/25 13:50 Hct 40.1 % (37-53) 09/20/25 13:50 MCV 85.1 fl (82-101) 09/20/25 13:50 MCH 30.4 pg (27-33) 09/20/25 13:50 MCHC 35.7 g/dL (30-55) 09/20/25 13:50 RDW 12.2 % (12.1-15.1) 09/20/25 13:50 Plt Count 183 10^3/cmm (157-399) 09/20/25 13:50 MPV 10.5 fL (7.4-10.4) H 09/20/25 13:50 Neut % (Auto) 77.7 % 09/20/25 13:50 Lymph % (Auto) 14.1 % 09/20/25 13:50 [place] % (Auto) 6.6 % 09/20/25 13:50 Eos % (Auto) 0.6 % 09/20/25 13:50 Baso % (Auto) 0.7 % 09/20/25 13:50 Neut # (Auto) 6.71 10^3/uL (1.8-7.7) 09/20/25 13:50 Lymph # (Auto) 1.2 10^3/uL (0.8-4.8) 09/20/25 13:50 Chase # (Auto) 0.6 10^3/uL (0.2-0.9) 09/20/25 13:50 Eos # (Auto) 0.1 10^3/uL (0.0-0.8) 09/20/25 13:50 Baso # (Auto) 0.1 10^3/uL (0.0-0.1) 09/20/25 13:50 Nucleated RBC % (auto) 0 % 09/20/25 13:50 Nucleated RBCs # 0.0 /100WBC 09/20/25 13:50 APTT 37.9 SECONDS (23.9-36.7) H 09/20/25 13:50 Sodium 138 mmol/L (136-145) 09/20/25 13:50 Potassium 3.9 mmol/L (3.5-5.1) 09/20/25 13:50 Chloride 104 mmol/L (98-107) 09/20/25 13:50 Carbon Dioxide 20 mmol/L (22-29) L 09/20/25 13:50 Anion Gap 17.9 (5-19) 09/20/25 13:50 BUN 13 mg/dL (8-23) 09/20/25 13:50 Creatinine 0.8 mg/dL (0.7-1.2) 09/20/25 13:50 GFR Calculation 98.0 mL/min (90-130) 09/20/25 13:50 Glucose 116 mg/dL (65-115) H 09/20/25 13:50 Calculated Osmolality 287 mOsm/kg (285-295) 09/20/25 13:50 Calcium 9.1 mg/dL (8.5-10.5) 09/20/25 13:50 Total Bilirubin 1.3 mg/dL (0.15-1.2) H 09/20/25 13:50 AST 18 U/L (0-40) 09/20/25 13:50 ALT 26 U/L (0-41) 09/20/25 13:50 Alkaline Phosphatase 106 U/L (40-130) 09/20/25 13:50 Troponin T Baseline 29 ng/L (0-15) H 09/20/25 11:26 Troponin T 120 Minute 33.50 ng/L (0-15) H 09/20/25 14:21 Delta Troponin T 4.50 ABS# (0-10) 09/20/25 14:21 Total Protein 6.2 g/dL (6.6-8.7) L 09/20/25 13:50 Albumin 4.2 g/dL (3.5-5.2) 09/20/25 13:50 Globulin 2.0 g/dL (1.3-4.6) 09/20/25 13:50 All radiology interpretation(s) finalized by discharge EKG Data EKG 1: I personally reviewed and interpreted this EKG as follows: EKG interpretation date: 09/20/25 Prior EKG tracings: available for review Interpretation: EKG 09/20/2025 11:19 AM sinus rhythm bundle branch right bundle branch block. There is some ST elevation in 2 3. There is no reciprocal changes. Compared to EKG from 08/31/2025 and August 23, 2025 there is not a significant change. Reviewed with Dr. Vivian Farfan did not feel this represents an acute ST elevation CA at this time Discharge Plan Discharge Patient Disposition: Admitted As Inpatient Admit Provider: Crow Jacobs Clinical Impression: Chest pain, Coronary artery disease Condition: Stable Coding Level of Care Code ED Rat Exterminator for Chg Fwd Heart Score HEART Score Components History: Highly Suspicious EKG: Significant ST-deviation Age: 45-64 yrs Risk Factors: >/=3 Risk Factors Troponin: Baseline Trop 16-45 ng/L HEART Score RESULT HEART Score: 8
[2025-09-20 11:31] VITALS: BP 148/90; PULSE 73; O2SAT 100
--- NOTE | 2025-09-20 12:20 | P.CONIM_ITS ---
<Statement entered by Kailee Farfan MD - 09/20/25 20:20> Patient was evaluated and cared for in conjunction with an advanced practice practitioner. I personally examined the patient and reviewed the chart and all pertinent data including imaging, telemetry, and laboratory results. I discussed the patient in detail with the advanced practice practitioner. Please see their note for complete H&P testing result and agreed upon plan of care for the patient. GENERAL: Patient is alert, awake and oriented x3. HEART: Regular S1 and S2. No murmur, rub or gallop. LUNGS: Clear to auscultate bilaterally. CENTRAL NERVOUS SYSTEM: Grossly nonfocal. EXTREMITIES: Lower extremities with out edema bilaterally. Assessment and plan Chest pain suspicious for angina Coronary artery disease status post drug-eluting stent to RCA Moderate to severe lesion of diagonal branch thought to be managed with staged PCI if failed optimization of medicine Noncompliant patient on the table Patient presentation of exertional chest pain and now at rest is suspicious for angina, will rule him out for acute coronary syndrome as EKG is not qualifying for ST elevation [place]. If he continues to have chest pressure despite optimization medicine we will proceed with left heart cath to assess patency of the RCA stent at the same time we will address diagonal branch if indicated. Rule out for acute coronary syndrome Nitroglycerin sublingual or patch for chest pain Morphine for chest pain Continue to monitor on telemetry Providers/Reason For Consult 2 Consulting Physician/Specialty*: Dr Farfan, interventional cardiology Reason for Consult*: STEMI alert Requesting Physician: Dr Hoskins Primary Care Provider: Brian Diamond MD History of Present Illness History of Present Illness aErnest Dawn is a 60 year old male with past medical history of CAD, SVT, underwent coronary angiogram on 08/31/2025 with GALI x 2 to the dominant RCA, diagonal 80% stenosis plans for staged PCI. He presented to the emergency room as a STEMI alert this morning, patient and EKG was evaluated by Dr. Farfan, although he had inferior ST elevation with Q waves, this was unchanged from previous and determined not to be a STEMI. He notes that since he was discharged from the hospital on 09/01/2025 that he has had exertional chest pain nearly every day. However he was working outside when he developed severe chest pain rated 10 out of 10, with nausea and diaphoresis with radiation down the left arm. He took one sublingual nitroglycerin, and received a nitroglycerin spray by EMS en route to the hospital. Currently he has a mild aching in the left chest. Echocardiogram obtained in the last admission 09/01/2025 showed LVEF 60%, mild concentric LVH, no significant valvular abnormalities. The rest of his laboratories are pending. Review of Systems 2 Const: Denies: fever(s), chills, change in weight, fatigue or diaphoresis Eyes: Denies: change in vision ENMT: Denies: epistaxis Card: Reports: chest pain; Denies: palpitations, irregular heart rhythm, edema, syncope, pre-syncope, dyspnea on exertion, orthopnea or leg pain with exertion Resp: Denies: dyspnea, productive cough or wheezing GI: Denies: nausea, vomiting, hematemesis, hematochezia or melena : Denies: hematuria Musc: Denies: extremity swelling Mario/Lymph: Denies: easy bruising or easy bleeding Medications/Allergies Home Medications ?Medication ?Instructions ?Recorded ?Confirmed ?Last Taken ?Type aspirin 81 mg tablet,delayed 81 mg PO DAILY 07/12/25 1 09/20/25 History release (Adult Aspirin Regimen) cholecalciferol (vitamin D3) 25 50 mcg PO DAILY 09/20/25 09/20/25 History mcg (1,000 unit) capsule famotidine 20 mg tablet 20 mg PO BID 07/12/2509/20/25 History omega 6-kru-nvs-fish oil 1,200 mg 2,400 cap PO DAILY 0 07/12/25 09/20/25 09/20/25 History (144 mg-216 mg) capsule metoprolol succinate 25 mg 25 mg PO DAILY #90 tabs 09/20/25 09/20/25 Rx tablet,extended release 24 hr clopidogrel 75 mg tablet 75 mg PO DAILY #90 tabs 02/2109/20/25 09/20/25 Rx nitroglycerin 0.4 mg sublingual 0.4 mg sublingual Q5M PRN Chest 09/01/25 09/20/25 09/20/25 Rx tablet Pain #30 tabs atorvastatin 40 mg tablet (Lipitor) 40 mg PO BEDTIME 1 09/20/25 09/19/25 History Allergies Allergy/AdvReac Type Severity Reaction Status Date / Time penicillin G Allergy ALGY-Rash Verified 08/23/25 09:34 PFSH Acute 2 PFSH: Family History Father CAD (coronary artery disease) Mother Diabetes Hypertension Denies family history of Cancer Social History (Updated 09/20/25 @ 19:41 by Crow Jacobs MD) Smoking and tobacco/nicotine status: former use of tobacco/nicotine Alcohol intake: current Alcohol intake frequency: holidays/special occasions only Substance/Drug Use: current Substance/Drug use frequency: daily Substance/Drug use type: Marijuana Additional social history: Patient wants full code as discussed with Crow Jacobs MD on 09/20/2025 Vitals/I&O/Wt Last Vital Signs Temp 98.5 F 09/20/25 11:25 Pulse 73 09/20/25 11:31 Resp 18 09/20/25 11:25 BP 148/90 09/20/25 11:31 Pulse Ox 100 09/20/25 11:31 O2 Del Method Room Air 09/20/25 11:31 Physical Exam 2 Const: COMMON NORMALS: no acute distress and patient oriented x3 GENERAL APPEARANCE: cooperative and comfortable ORIENTATION/CONSCIOUSNESS: Yes awake, Yes oriented to person, Yes oriented to place and Yes oriented to time Chest: COMMONS NORMALS: normal inspection of the chest and normal palpation of entire chest wall CHEST: Yes Symmetrical chest wall rise Resp: COMMON NORMALS: normal respiratory effort, No retractions, No use of accessory muscles and clear to auscultation bilaterally EFFORT & INSPECTION: Yes symmetric chest movement AUSCULTATION: clear to auscultation bilaterally Cardio: COMMON NORMALS: regular rate, regular rhythm, S1 normal heart sound present, S2 normal heart sound present, No gallops present (Cardio), No clicks present (Cardio), No murmurs present (Cardio) and No rub (Cardio) RATE: r egular rate RHYTHM: regular rhythm HEART SOUNDS: S1 normal heart sound present and S2 normal heart sound present PERIPHERAL PULSES: radial pulses present Extremity: COMMON NORMALS: no pedal edema Neuro: COMMON NORMALS: patient oriented x3 and moves all extremities S ENSORIUM/ORIENTATION: Yes oriented to person, Yes oriented to place and Yes oriented to time Data 09/20/25 13:50 09/20/25 13:50 A&P Assessment and plan 1. Chest pain: 2. Coronary artery disease: 3. RBBB: 4. SVT (supraventricular tachycardia): 5. Mixed hyperlipidemia: Plan: He has typical chest pain and known significant stenosis which was planned for staged PCI. Will recommend to admit for observation, continue to trend troponins and monitor EKG. He has Nitropaste applied to the chest. Plan to start heparin infusion, continue home medications. Possible coronary angiogram tomorrow. N.p.o. after midnight tonight. PDMP PDMP Reviewed: Not Reviewed Coding Level of Care Code Acute Code for g Fwd Diagnoses Chest pain R07.9 Coronary artery disease I25.10 RBBB I45.10 SVT (supraventricular tachycardia) I47.10 Mixed hyperlipidemia E78.2
[2025-09-20 12:26] LABS: Troponin(5th) Baseline 29 ng/L (0-15)
[2025-09-20 12:36] VITALS: BP 129/92; PULSE 69; O2SAT 98
--- NOTE | 2025-09-20 13:11 | ECG_ITS ---
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 Measurements Intervals [place] Rate: 60 P: 14 MA: 115 QRS: 34 QRSD: 149 T: 6 QT: 437 QTc: 439 Interpretive Statements SINUS RHYTHM WITH SHORT MA INTERVAL RIGHT BUNDLE BRANCH BLOCK [120+ ms QRS DURATION, UPRIGHT V1, 40+ ms S IN I/aVL/V4/V5/V6] Compared to ECG 09/20/2025 11:18:11 Short MA interval now present ST (T wave) deviation no longer present Myocardial infarct finding no longer present Electronically Signed On 09-20-2025 22:58:10 CDT by Gurvinder Stephen M.D. [email or web address] [id number]
[2025-09-20 14:07] LABS: Hematocrit 40.1 % (37-53); Hemoglobin 14.30 g/dL (11.27-16.99); Mean Corpuscular HGB Conc 35.7 g/dL (30-55); Mean Corpuscular Hemoglobin 30.4 pg (27-33); Mean Corpuscular Volume 85.1 fl (82-101); Nucleated Red Blood Cells % 0 %; Platelet Count 183 10^3/cmm (157-399); Red Blood Count 4.71 10^6/uL (3.85-5.65); White Blood Count 8.64 10^3/uL (3.29-11.43)
--- NOTE | 2025-09-20 14:08 | PC.PHAR ---
Pt is [facility] but does know his medications. Spouse is also helpful with medications.
[2025-09-20 14:25] LABS: Alanine Aminotransferase 26 U/L (0-41); Albumin Level 4.2 g/dL (3.5-5.2); Alkaline Phosphatase 106 U/L (40-130); Anion Gap 17.9 (5-19); Aspartate Amino Transferase 18 U/L (0-40); Blood Urea Nitrogen 13 mg/dL (8-23); Calcium 9.1 mg/dL (8.5-10.5); Carbon Dioxide 20 mmol/L (22-29); Chloride 104 mmol/L (98-107); Creatinine Clr Calc Pharmacy 107.1709; Globulin 2.0 g/dL (1.3-4.6); Glucose 116 mg/dL (65-115); Osmolality Calculated 287 mOsm/kg (285-295); Potassium 3.9 mmol/L (3.5-5.1); Sodium 138 mmol/L (136-145); Total Protein 6.2 g/dL (6.6-8.7)
[2025-09-20] MEDS: heparin 5,000 unit/mL INJ 1 mL IVP (14:51)
[2025-09-20] MEDS: heparin drip 25,000 UNIT/500 ML PREMIX 27 UNIT IV (14:51)
[2025-09-20 15:00] LABS: Troponin 5 2HR 33.50 ng/L (0-15); Troponin 5 2HR Delta 4.50 ABS# (0-10)
[2025-09-20 15:21] LABS: Partial Thromboplastin Time 37.9 SECONDS (23.9-36.7)
[2025-09-20 15:32] VITALS: BP 151/93; PULSE 76; O2SAT 98
--- NOTE | 2025-09-20 17:11 | ECG_ITS ---
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 Measurements Intervals [place] Rate: 78 P: 51 VT: 104 QRS: 42 QRSD: 149 T: 12 QT: 407 QTc: 464 Interpretive Statements SINUS RHYTHM WITH SHORT VT INTERVAL INTRAVENTRICULAR CONDUCTION DELAY [130+ ms QRS DURATION] Compared to ECG 09/20/2025 13:08:13 Intraventricular conduction delay now present Right bundle-branch block no longer present Electronically Signed On 09-20-2025 22:56:53 CDT by Gurvinder Stephen M.D. [email or web address] [id number]
[2025-09-20 18:15] VITALS: PULSE 79
[2025-09-20 18:20] LABS: Troponin 5 6HR 76.59 ng/L (0-15)
[2025-09-20 18:25] LABS: Troponin 5 6HR Delta 47.59 ng/L (0-12)
--- NOTE | 2025-09-20 19:03 | PM.HP ---
Providers/Chief Complaint Admitting Physician: Crow Jacobs MD Primary Care Provider: Brian Diamond MD Chief Complaint: STEMI Alert History of Present Illness Earnest Dawn is a 60 year old male with past medical history of CAD, SVT, underwent coronary angiogram on 08/31/2025 with GALI x 2 to the dominant RCA, diagonal 80% stenosis plans for staged PCI. He presented to the emergency room as a STEMI alert this morning, patient and EKG was evaluated by Dr. Farfan, although he had inferior ST elevation with Q waves, this was unchanged from previous and determined not to be a STEMI. He notes that since he was discharged from the hospital on 09/01/2025 that he has had exertional chest pain nearly every day. However he was working outside when he developed severe chest pain rated 10 out of 10, with nausea and diaphoresis with radiation down the left arm. He took one sublingual nitroglycerin, and received a nitroglycerin spray by EMS en route to the hospital. Near complete relief. Echocardiogram obtained in the last admission 09/01/2025 showed LVEF 60%, mild concentric LVH, no significant valvular abnormalities. EKG today incomplete RBBB. some elevation in lead III but decreased by 2nd EKG. started on heparin protocol. Patient reports pain 3-4/10 coming and going left chest. He has been having this since he left the hospital with his last stent but the 10 pain this morning was different Patient states he is disabled from the [employer] smokes weed about 1 g a day no alcohol or tobacco Patient states he takes the following meds at night atorvastatin, clopidogrel, Pepcid and Toprol and is asking for the Review of Systems Narrative: GI positive for nausea this morning with his chest pain but none now Medications/Allergies Home Medications ?Medication ?Instructions ?Recorded ?Confirmed ?Last Taken ?Type aspirin 81 mg tablet,delayed 81 mg PO DAILY 07/12/25 09/20/25 09/20/25 History release (Adult Aspirin Regimen) cholecalciferol (vitamin D3) 25 50 mcg PO DAILY 07/12/25 09/20/25 09/20/25 History mcg (1,000 unit) capsule famotidine 20 mg tablet 20 mg PO BID 07/12/25 09/20/25 09/20/25 History omega 9-gos-vsx-fish oil 1,200 mg 2,400 cap PO DAILY 07/12/25 09/20/25 09/20/25 History (144 mg-216 mg) capsule metoprolol succinate 25 mg 25 mg PO DAILY #90 tabs 07/13/25 09/20/25 09/20/25 Rx tablet,extended release 24 hr clopidogrel 75 mg tablet 75 mg PO DAILY #90 tabs 09/01/25 09/20/25 09/20/25 Rx nitroglycerin 0.4 mg sublingual 0.4 mg sublingual Q5M PRN Chest 09/01/25 09/20/25 09/20/25 Rx tablet Pain #30 tabs atorvastatin 40 mg tablet (Lipitor) 40 mg PO BEDTIME 09/20/25 09/20/25 09/19/25 History Allergies Allergy/AdvReac Type Severity Reaction Status Date / Time penicillin G Allergy ALGY-Rash Verified 08/23/25 09:34 PFSH Acute PFSH: Family History Father CAD (coronary artery disease) Mother Diabetes Hypertension Denies family history of Cancer Social History (Updated 09/20/25 @ 19:41 by Crow Jacobs MD) Smoking and tobacco/nicotine status: former use of tobacco/nicotine Alcohol intake: current Alcohol intake frequency: holidays/special occasions only Substance/Drug Use: current Substance/Drug use frequency: daily Substance/Drug use type: Marijuana Additional social history: Patient wants full code as discussed with Crow Jacobs MD on 09/20/2025 Vitals/I&O/Wt Last Vital Signs Temp 98.5 F 09/20/25 11:25 Pulse 79 09/20/25 18:15 Resp 18 09/20/25 11:25 BP 151/93 09/20/25 15:32 Pulse Ox 98 09/20/25 15:32 O2 Del Method Room Air 09/20/25 15:49 09/20/25 09/20/25 09/20/25 06:59 14:59 22:59 Intake Total 566.4 / 566.4 Balance 566.4 / 566.4 Weight last 48 hrs Weight 95.254 kg Physical Exam Narrative: General well-developed well-nourished male in no acute cardiopulmonary distress CV regular rate and rhythm Lungs clear to auscultation bilaterally Abdomen positive bowel tones soft nontender Calves no tenderness cords or pretibial edema Left anterior chest wall upper pectoral muscle is tender to palpation mildly and reminiscent of his chest pain since last discharge but different from the nitroglycerin relieved pain this morning Data 09/20/25 13:50 09/20/25 13:50 A&P Assessment and plan 1. Coronary artery disease: Patient with 10/10 chest pain and nausea this morning known on stented 80% diagonal artery lesion off the LAD. Currently he is chest pain-free 2. RBBB: Unchanged at least since 2024 3. Chest pain: Has atypical reproducible chest pain the left upper pectoral muscle. PDMP PDMP Reviewed: Not Reviewed Attestations Medical Necessity Statement*: Patient bibi a hospital and anticipated to require greater than 2 midnights Coding Level of Care Code 41967 Diagnoses Coronary artery disease I25.10 RBBB I45.10 Chest pain R07.9 Time Spent (min) 55
[2025-09-20 20:58] VITALS: BP 137/82; PULSE 77; RESP 19; O2SAT 99
[2025-09-20] MEDS: metoprolol succinate ER (24 HR) 25 mg Tablet PO (21:01)
[2025-09-20 21:36] LABS: Partial Thromboplastin Time > 250.0 SECONDS (23.9-36.7)
[2025-09-21] VITALS (23 sets, daily range): BP systolic 108–159; BP diastolic 68–93; PULSE 64–81; RESP 12–26; TEMP 36.3–36.7; O2SAT 94–100; BMI 32.6
[2025-09-21 00:25] LABS: Partial Thromboplastin Time 57.9 SECONDS (23.9-36.7)
[2025-09-21 06:10] LABS: Partial Thromboplastin Time 130.8 SECONDS (23.9-36.7)
--- NOTE | 2025-09-21 06:19 | XACV_ITS ---
Exam Room: 2 Ht: 173 cm Wt: 95 kg BSA: 2.17 m2 Gender: Male : 1965 Any Known Allergies: Penicillins Exam Priority: Routine Procedure(s): Procedure Description: Diagnostic procedure Procedure Description: PCI procedure Procedure Description: Drug Eluting Coronary Stent Procedure Description: PTCA Procedure Description: Miscellaneous Procedure Description: ACT Procedure Description: Coronary Angiography TRISTANTrudy, Farfan; Diagnostic Cath Status: Elective Diagnostic Findings * Patent previously placed mid RCA stent without any significant in-stent restenosis or thrombosis.. * Mid Circumflex: significant 80% stenosis, JASBIR: 3 flow. It has a diffuse long segment disease with napkin ring type eccentric 80 to 90% stenosis more visible in KELLEN caudal, it is the culprit vessel. * 1st Diagonal: obstructive 80% stenosis, JASBIR: 3 flow. Small caliber vessel. * Left Main has no disease. * Left Anterior Descending has no disease. * Coronary angiography shows right dominance. PCI Status: Elective PCI Indication: NSTE - ACS Interventional Findings * Mid Circumflex: 80% stenosis treated with a AB TREK 2.50X15 RX BALLOON, MASOOD Brownlee HOLLAND 3.0X34 GALI, and MDT RAAD EUPHORA RX [id number] BALLOON. 0% residual stenosis, JASBIR: 3 flow. * 1st Diagonal: 70% stenosis treated with a AB TREK 2.25X15 RX BALLOON. 40% residual stenosis, JASBIR: 3 flow. Conclusions 1. There is significant coronary artery disease with one vessel disease. 2. Mid Circumflex was treated with a Balloon, Drug Eluting Stent, and Balloon. 3. 1st Diagonal was treated with a Balloon. Recommendations * 1-Return to inpatient for close monitoring and routine cath care 2-Risk factor modification for secondary prevention 3-Statin and aspirin 81 mg life-long, if tolerated 4-Continue Plavix 75mg p.o. daily for at least one year. We will assess at the end of one year again to continue if further or not 5-Continue optimal medical management 6-Follow up with Dr. Farfan in four weeks and your primary care in 10 days. Diagnostic RX Recommendation: PCI w/o planned CABG Pressures Phase:Rest AO : 132 / 84 ( 104 ) @ 9:02:00 AM 126 / 96 ( 112 ) @ 9:04:00 AM 154 / 98 ( 120 ) @ 9:08:00 AM 134 / 93 ( 112 ) @ 9:11:00 AM 131 / 94 ( 112 ) @ 9:29:00 AM 130 / 93 ( 113 ) @ 9:38:00 AM 146 / 106 ( 126 ) @ 9:40:00 AM Clinical Evaluation EBL: 5mL-10mL Procedural Details Pre-Procedure Time Out. Identified patient by full name and date of as verbalized by the patient/guarantor. Does the consent match the physician's order: Yes. Accurate & Complete Informed Consent: Yes. Inpatient/Outpatient History & Physical on Chart: Yes. If H&P is completed, is and addenduem needed: No; If yes, is the addendum complete: N/A. Visualize and Verify Site with Patient/Guarantor: N/A. Relevant Radiology Images available: Yes. Pre-op teaching completed and patient verbalized understanding. The risks, benefits, and alternatives of sedation and/or procedure were discussed by physician. The patient agrees to continue. Procedure started. Current Diagnosis : Chest Pain. [facility] Clinical Fraility Score: 3: Managing Well. 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 Chest Pain Symptom Assessment: Typical Angina Symptoms. Correct patient, site and procedure confirmed by cath team. Current diagnosis: Chest Pain. PERRLA. Strong, equal hand exercise science internship bilaterally. Lungs clear x 5 lobes. IV Site on Arrival: 18 gauge in the right anticubital. IV Site on Arrival: 18 gauge in the left anticubital. IV Fluids: 0.9% NaCl at KVO. 0 mL infused prior to pipelines laborer. right groin was prepped with chloroprep then draped in the usual sterile fashion. right radial was prepped with chloroprep then draped in the usual sterile fashion. Baseline sample Acquired. HR: 76 BPM. Physician arrived. Physician scrubbed in. Immediate Pre-Procedure Time Out. Correct Patient: Yes; Correct Procedure: Yes; Correct Site: Yes; Correct Patient Position: Yes; Correct Supplies: Yes; Dried Flammable Prep: Yes; Blood Products Available: N/A;. Lidocaine 1% infiltrated to the right radial. Arterial access obtained. A 5 djiboutian French catheter in over wire. ACT drawn. Results 154 seconds. Therapeutic limits - pre-heparin administration 90-150 seconds and monitoring heparin during a vascular procedure >250 seconds. Multiple views taken of right coronary artery. A 6 djiboutian XB 3 catheter in over wire. Multiple views taken of left coronary artery. Runthrough guidewire was advanced through the guide catheter to lesion in the mid Circ. Balloon inserted to lesion in the mid Circ. Inflation number : 1 A AB TREK 2.50X15 RX BALLOON was prepped and advanced across the Mid CX , then inflated to 12 JEREMIAH for 0:05 seconds. Inflation number: 2 The AB TREK 2.50X15 RX BALLOON was reinflated across the Mid CX, to 14 JEREMIAH for 0:14 seconds. Inflation number: 3 The AB TREK 2.50X15 RX BALLOON was reinflated across the Mid CX, to 14 JEREMIAH for 0:06 seconds. Inflation number: 4 The AB TREK 2.50X15 RX BALLOON was reinflated across the Mid CX, to 14 JEREMIAH for 0:10 seconds. Balloon out. Inflation Number : 5 A MASOOD Brownlee HOLLAND 3.0X34 GALI -Lot Number# _[id number] EXP: 10/23/2027 was prepped and advanced across the Mid CX. The stent was deployed at 12 JEREMIAH for 0:33 seconds. Stent balloon out over wire. Results checked. Inflation number : 6 A MASOOD SHANKAR EUPHORA RX [id number] BALLOON was prepped and advanced across the Mid CX , then inflated to 12 JEREMIAH for 0:15 seconds. Inflation number: 7 The MDT NC EUPHORA RX [id number] BALLOON was reinflated across the Mid CX, to 12 JEREMIAH for 0:13 seconds. Inflation number: 8 The MDT NC EUPHORA RX [id number] BALLOON was reinflated across the Mid CX, to 14 JEREMIAH for 0:11 seconds. Balloon out. Results checked. ACT drawn. Results out of range high seconds. Therapeutic limits - pre-heparin administration 90-150 seconds and monitoring heparin during a vascular procedure >250 seconds. Results checked. Wire redirected to the Diag. Inflation number : 1 A AB TREK 2.25X15 RX BALLOON was prepped and advanced across the 1st Diag , then inflated to 8 JEREMIAH for 0:17 seconds. Inflation number: 2 The AB TREK 2.25X15 RX BALLOON was reinflated across the 1st Diag, to 8 JEREMIAH for 0:14 seconds. Inflation number: 3 The AB TREK 2.25X15 RX BALLOON was reinflated across the 1st Diag, to 8 JEREMIAH for 0:13 seconds. Balloon out. Results checked. Wire out. Guide catheter out. ACT drawn. Results 331 seconds. Therapeutic limits - pre-heparin administration 90-150 seconds and monitoring heparin during a vascular procedure >250 seconds. Post Procedure: Pulses reassessed and unchanged. PERRLA. Strong, equal hand exercise science internship bilaterally. No VTE prophylaxis required. Medication's Wasted: Lidocaine 1% = 18 mL. Medication's Wasted: Nitro = 49.4 mcg. Total IV fluids: 75 mL. Post-op diagnosis: CAD. Complications: None. Estimated blood loss: 5mL-10mL. Responsiveness - Normal response to verbal stimuli; alert and oriented, PERRLA. Airway - Unaffected, no intervention required; spontaneous ventilation. Circulation: W/N/L, pulses unchanged. Nausea/Vomiting: No. A TR Band was successful obtaining hemostatsis at the Right Radial artery insertion site. Vital chart was stopped. Procedure completed. Patient transferred by bed to 1st floor. Access Site Site: Right Radial artery Sheath Size: 6 Fr Hemostasis Method: TR Band Hemostasis Success: Successful Procedure Medications Start: 7:45 AM Stop: 7:45 AM Medication: Versed Amount: 1 mg Route: I.V. Start: 7:45 AM Stop: 7:45 AM Medication: Fentanyl Amount: 50 mcg Route: I.V. Start: 7:58 AM Stop: 7:58 AM Medication: Nitrogylcerin Amount: 200 mcg Route: I.A. Start: 8:07 AM Stop: 8:07 AM Medication: Heparin Amount: 5000 units Route: I.V. Start: 8:08 AM Stop: 8:08 AM Medication: Fentanyl Amount: 25 mcg Route: I.V. Start: 8:13 AM Stop: 8:13 AM Medication: Heparin Amount: 4000 units Route: I.V. Start: 8:30 AM Stop: 8:30 AM Medication: Fentanyl Amount: 25 mcg Route: I.V. Start: 8:32 AM Stop: 8:32 AM Medication: Nitrogylcerin Amount: 200 mcg Route: I.C. Start: 8:40 AM Stop: 8:40 AM Medication: Nitrogylcerin Amount: 200 mcg Route: I.C. I, the attending physician, have reviewed and verified all procedure medications. Yes, all medications given per verbal order History/Risk Factors Hypertension: No Dyslipidemia: No Peripheral Arterial Disease (PAD): No Myocardial Infarction (PR): No Obesity: No Renal Disease: No Tobacco Use: Former Prior Interventions PCI: Yes CABG: No Valve Surgery: No Date of PCI: 08/31/2025 Report Signatures Finalized by Kailee Farfan MD on 09/21/2025 08:58 AM
--- NOTE | 2025-09-21 07:45 | W.PM.OPSUD ---
Surgery/Procedure H&P Update DATE OF PROCEDURE: September 21, 2025 DATE H&P PERFORMED: 09/20/25 H&P UPDATE INFORMATION: I have reviewed H&P completed within last 30 days, I have examined patient prior to procedure and No changes to prior documentation PREOP DIAGNOSIS: Unstable angina PLANNED PROCEDURE: Operation Date: 09/21/25 07:00 Proposed Procedures p Cardiac Catheterization(Not Applicable) - Kailee Farfan MD PATIENT REASSESSED PRIOR TO SEDATION, WITH NO CHANGE NOTED: Yes PHYSICAL EXAM: alert, oriented x 3, clear to auscultation bilaterally, regular rate & rhythm and operative site marked AIRWAY EVAL/ANESTHESIA PLAN: ASA II, Risks, benefits & alternatives of sedation and/or procedure discussed and Patient agrees to continue as planned ADDITIONAL INFORMATION: All risk-benefit and already for the procedure has been explained to the patient. Patient understand 2% risk of stroke major bleed. Patient restand 5% risk of minor bleeding oozing infection hematoma contrast-induced nephropathy urgent or emergent vascular or bypass surgery. Patient would like to proceed with it
--- NOTE | 2025-09-21 09:14 | PM.PN ---
Subjective Subjective: Patient underwent left heart catheter today noted to have napkin ring high-grade 80% stenosis of the mid circumflex which was treated with drug-eluting stent with excellent angiographic result Diagonal branch which is small caliber is 80% stenosis, it was balloon angioplastied as it is small caliber with good angiographic result Patent previously placed RCA stents without significant stenosis or thrombosis Vitals/I&O/Wt Last Vital Signs Temp 98.5 F 09/20/25 11:25 Pulse 72 09/21/25 04:00 Resp 14 09/21/25 04:00 BP 113/79 09/21/25 04:00 Pulse Ox 94 09/21/25 05:05 O2 Del Method Room Air 09/21/25 05:05 09/20/25 09/21/25 09/21/25 22:59 06:59 14:59 Intake Total 683.683 / 683.683 144.667 / 828.350 Balance 683.683 / 683.683 144.667 / 828.350 Weight last 48 hrs Weight 214 lb 15.211 oz Weight 214 lb 15.211 oz Weight 210 lb Physical Exam Narrative: GENERAL: Patient is alert, awake and oriented x3. HEART: Regular S1 and S2. No murmur, rub or gallop. LUNGS: Clear to auscultate bilaterally. CENTRAL NERVOUS SYSTEM: Grossly nonfocal. EXTREMITIES: Lower extremities with out edema bilaterally. Const: COMMON NORMALS: alert Resp: COMMON NORMALS: clear to auscultation bilaterally AUSCULTATION: clear to auscultation bilaterally Neuro: SENSORIUM/ORIENTATION: Yes alert Data 09/20/25 13:50 09/20/25 13:50 A&P Assessment and plan 1. Chest pain: 2. Coronary artery disease: 3. RBBB: 4. SVT (supraventricular tachycardia): 5. Mixed hyperlipidemia: Plan: Underwent percutaneous angioplasty of the mid circumflex with drug-eluting stent and balloon angioplasty of the diagonal branch, patent previously placed RCA stent continue aspirin clopidogrel statin and beta-magaly Usual post-cath care Possible discharge tomorrow PDMP PDMP Reviewed: Not Reviewed Attestations Medical Necessity Statement*: Patient require continuation of hospitalization for above defined care possible discharge tomorrow Coding Level of Care Code Acute Code for [facility] Diagnoses Chest pain R07.9 Coronary artery disease I25.10 RBBB I45.10 SVT (supraventricular tachycardia) I47.10 Mixed hyperlipidemia E78.2
--- NOTE | 2025-09-21 09:55 | PC.NURSE ---
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 with right radial access and TR band in place. No s/s of bleeding or hematoma formation observed. Instructed patient on site care with restrictions. Patient verbalized complete understanding. Patient denies pain or needs presently. No distress observed.
--- NOTE | 2025-09-21 10:27 | P.PN_ITS ---
Subjective 2 Subjective: 60-year-old male accompanied b y his . He states that he has no chest pain this morning and has already been to cardiac cath but does not know results yet. Per Dr. Farfan patient underwent left heart catheter today noted to have napkin ring high-grade 80% stenosis of the mid circumflex which was treated with drug- eluting stent with excellent angiographic result Diagonal branch which is small caliber is 80% stenosis, it was balloon angioplastied as it is small caliber with good angiographic result Patent previously placed RCA stents without significant stenosis or thrombosis Vitals/I&O/Wt Last Vital Signs Temp 98.0 F 09/21/25 08:50 Pulse 64 09/21/25 08:50 Resp 16 09/21/25 08:50 BP 117/86 09/21/25 08:50 Pulse Ox 99 09/21/25 08:50 O2 Del Method Room Air 09/21/25 05:05 09/20/25 09/21/25 09/21/25 22:59 06:59 14:59 Intake Total 683.683 / 683.683 144.667 / 828.350 372.833 / 372.833 Balance 683.683 / 683.683 144.667 / 828.350 372.833 / 372.833 Weight last 48 hrs Weight 97.5 kg Weight 97.5 kg Weight 95.254 kg Physical Exam 2 Narrative: General well-developed well-nourished male in no acute cardiopulmonary distress CV regular rate and rhythm Lungs clear to auscultation bilaterally Abdomen positive bowel tones soft nontender Calves no tenderness cords or pretibial edema Left anterior chest wall upper pectoral muscle no longer tender to palpation. Data 09/20/25 13:50 09/20/25 13:50 A&P Assessment and plan 1. Coronary artery disease: Pain-free now status post stent of the 80% diagonal artery out the LAD. Increase activity today anticipate discharge tomorrow 2. RBBB: Unchanged at least since 07/2025 3. Chest pain: Had atypical reproducible chest pain the left upper pectoral muscle. At this time is resolved PDMP PDMP Reviewed: Not Reviewed Attestations 2 Medical Necessity Statement*: Patient bibi in the hospital for monitoring and increase activity. Anticipate discharge tomorrow Coding Level of Care Code 82165 Diagnoses Coronary artery disease I25.10 RBBB I45.10 Chest pain R07.9 Time Spent (min) 25
--- NOTE | 2025-09-21 13:19 | PC.NURSE ---
Patient refuses to leave BP cuff in place. Instructed patient on need for frequent vital signs. Patient stated, I forgot to replace when I got up to bathroom.
--- NOTE | 2025-09-21 14:30 | PC.NURSE ---
initiated TR band removal at 1130 removing 2ml of air every 15-20min until band removed at 1330. Patient encouragedd to leave BP cuff in place. No s/s of bleeding or hematoma formation observed. Patient denies pain or needs. No distress observed
--- NOTE | 2025-09-21 16:45 | PC.NURSE ---
Patient up and down to bathroom. Patient removing BP cuff due to discomfort. VS remaining WNL. No bleeding or hematoma formation observed. Patient denies pain to site. No distress noted.
[2025-09-21] MEDS: ondansetron 2 mg/ML SDV 2 mL 4 MG IVP (20:19)
[2025-09-21] MEDS: metoprolol succinate ER (24 HR) 25 mg Tablet PO (20:20)
[2025-09-22 03:21] VITALS: BP 149/84; PULSE 75; RESP 17; TEMP 36.6; O2SAT 99
[2025-09-22 05:08] VITALS: BMI 32.8
[2025-09-22 05:09] LABS: Hematocrit 40.0 % (37-53); Hemoglobin 14.20 g/dL (11.27-16.99); Mean Corpuscular HGB Conc 35.5 g/dL (30-55); Mean Corpuscular Hemoglobin 31.0 pg (27-33); Mean Corpuscular Volume 87.3 fl (82-101); Nucleated Red Blood Cells % 0 %; Platelet Count 152 10^3/cmm (157-399); Red Blood Count 4.58 10^6/uL (3.85-5.65); White Blood Count 5.48 10^3/uL (3.29-11.43)
[2025-09-22 05:56] LABS: Anion Gap 15.0 (5-19); Blood Urea Nitrogen 9 mg/dL (8-23); Calcium 8.9 mg/dL (8.5-10.5); Carbon Dioxide 23 mmol/L (22-29); Chloride 105 mmol/L (98-107); Creatinine Clr Calc Pharmacy 108.6042; Glucose 119 mg/dL (65-115); Osmolality Calculated 288 mOsm/kg (285-295); Potassium 4.0 mmol/L (3.5-5.1); Sodium 139 mmol/L (136-145)
[2025-09-22 07:42] VITALS: BP 117/84; PULSE 63; RESP 19; TEMP 36.4; O2SAT 98
--- NOTE | 2025-09-22 09:45 | PM.DCS ---
Discharge Providers Date of Admission: 09/20/25 15:16 Date of Discharge: September 22, 2025 Attending Provider at Admission: Crow Jacobs MD Attending Provider at Discharge: Crow Jacobs MD Consults: Kailee Farfan MD cardiology Primary Care Provider: Brian Diamond MD Diagnoses at Discharge Discharge Diagnosis 1. Coronary artery disease: Details from hospital stay: Patient is status post left heart cath by Dr. Farfan on 09/21/2025 findings as follows and includes 1 stent Patient underwent left heart catheter 09/21/2025 noted to have napkin ring high-grade 80% stenosis of the mid circumflex which was treated with drug-eluting stent with excellent angiographic result Diagonal branch which is small caliber is 80% stenosis, it was balloon angioplastied as it is small caliber with good angiographic result Patent previously placed RCA stents without significant stenosis or thrombosis 2. RBBB: Details from hospital stay: Unchanged 3. Unstable angina: Details from hospital stay: Resolved. Patient had severe chest pain 10/10 with nausea diaphoresis and radiation down the left arm relieved by nitroglycerin. This was consistent with his angina He had a second pain more intermittent for the last month that was reproducible with left upper pectoral tenderness. This also resolved however with the stent to the left circumflex and PTCA to the diagonal Reason for Visit Reason for Visit: STEMI Alert Brief History: Earnest Dawn is a 60 year old male with past medical history of CAD, SVT, underwent coronary angiogram on 08/31/2025 with GALI x 2 to the dominant RCA, diagonal 80% stenosis plans for staged PCI. He presented to the emergency room as a STEMI alert this morning, patient and EKG was evaluated by Dr. Farfan, although he had inferior ST elevation with Q waves, this was unchanged from previous and determined not to be a STEMI. He notes that since he was discharged from the hospital on 09/01/2025 that he has had exertional chest pain nearly every day. However he was working outside when he developed severe chest pain rated 10 out of 10, with nausea and diaphoresis with radiation down the left arm. He took one sublingual nitroglycerin, and received a nitroglycerin spray by EMS en route to the hospital. Near complete relief. Echocardiogram obtained in the last admission 09/01/2025 showed LVEF 60%, mild concentric LVH, no significant valvular abnormalities. EKG today incomplete RBBB. some elevation in lead III but decreased by 2nd EKG. started on heparin protocol. Patient reports pain 3-/10 coming and going left chest. He has been having this since he left the hospital with his last stent but the 09/08 pain this morning was different Patient states he is disabled from the [employer] smokes weed about 1 g a day no alcohol or tobacco Patient states he takes the following meds at night atorvastatin, clopidogrel, Pepcid and Toprol and is asking for the Hospital Course Hospital Course Patient underwent PTCA to the circumflex in the diagonal off the LAD. Circumflex received a stent. 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 He states on his home routine he does not have constipation Medications are unchanged. 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 Routine Exams 09/21/25 06:19 Completed Laboratory Results WBC 5.48 10^3/uL (3.29-11.43) 09/22/25 04:48 RBC 4.58 10^6/uL (3.85-5.65) 09/22/25 04:48 Hgb 14.20 g/dL (11.27-16.99) 09/22/25 04:48 Hct 40.0 % (37-53) 09/22/25 04:48 MCV 87.3 fl (82-101) 09/22/25 04:48 MCH 31.0 pg (27-33) 09/22/25 04:48 MCHC 35.5 g/dL (30-55) 09/22/25 04:48 RDW 12.5 % (12.1-15.1) 09/22/25 04:48 Plt Count 152 10^3/cmm (157-399) L 09/22/25 04:48 MPV 11.3 fL (7.4-10.4) H 09/22/25 04:48 Neut % (Auto) 69.7 % 09/22/25 04:48 Lymph % (Auto) 14.6 % 09/22/25 04:48 [place] % (Auto) 12.6 % 09/22/25 04:48 Eos % (Auto) 2.2 % 09/22/25 04:48 Baso % (Auto) 0.7 % 09/22/25 04:48 Neut # (Auto) 3.82 10^3/uL (1.8-7.7) 09/22/25 04:48 Lymph # (Auto) 0.8 10^3/uL (0.8-4.8) 09/22/25 04:48 [place] # (Auto) 0.7 10^3/uL (0.2-0.9) 09/22/25 04:48 Eos # (Auto) 0.1 10^3/uL (0.0-0.8) 09/22/25 04:48 Baso # (Auto) 0.0 10^3/uL (0.0-0.1) 09/22/25 04:48 Nucleated RBC % (auto) 0 % 09/22/25 04:48 Nucleated RBCs # 0.0 /100WBC 09/22/25 04:48 APTT 130.8 SECONDS (23.9-36.7) H D 09/21/25 05:36 Sodium 139 mmol/L (136-145) 09/22/25 05:36 Potassium 4.0 mmol/L (3.5-5.1) 09/22/25 05:36 Chloride 105 mmol/L (98-107) 09/22/25 05:36 Carbon Dioxide 23 mmol/L (22-29) 09/22/25 05:36 Anion Gap 15.0 (5-19) 09/22/25 05:36 BUN 9 mg/dL (8-23) 09/22/25 05:36 Creatinine 0.8 mg/dL (0.7-1.2) 09/22/25 05:36 GFR Calculation 98.0 mL/min (90-130) 09/22/25 05:36 Glucose 119 mg/dL (65-115) H 09/22/25 05:36 Calculated Osmolality 288 mOsm/kg (285-295) 09/22/25 05:36 Calcium 8.9 mg/dL (8.5-10.5) 09/22/25 05:36 Total Bilirubin 1.3 mg/dL (0.15-1.2) H 09/20/25 13:50 AST 18 U/L (0-40) 09/20/25 13:50 ALT 26 U/L (0-41) 09/20/25 13:50 Alkaline Phosphatase 106 U/L (40-130) 09/20/25 13:50 Troponin T Baseline 29 ng/L (0-15) H 09/20/25 11:26 Troponin T 120 Minute 33.50 ng/L (0-15) H 09/20/25 14:21 Delta Troponin T 4.50 ABS# (0-10) 09/20/25 14:21 Troponin T Hi Sens 6Hr 76.59 ng/L (0-15) H 09/20/25 17:39 Troponin T Hi Sens 6Hr Delta 47.59 ng/L (0-12) H* 09/20/25 17:39 Total Protein 6.2 g/dL (6.6-8.7) L 09/20/25 13:50 Albumin 4.2 g/dL (3.5-5.2) 09/20/25 13:50 Globulin 2.0 g/dL (1.3-4.6) 09/20/25 13:50 Vitals Last Vital Signs Temp 97.6 F 09/22/25 07:42 Pulse 63 09/22/25 07:42 Resp 19 H 09/22/25 07:42 BP 117/84 09/22/25 07:42 Pulse Ox 98 09/22/25 07:42 O2 Del Method Room Air 09/22/25 07:42 Discharge Plan Discharge Patient Disposition: Home Condition: Stable Prescriptions: Continued aspirin [Adult Aspirin Regimen] 81 mg tablet,delayed release (DR/EC) 81 mg PO DAILY famotidine 20 mg tablet 20 mg PO BID cholecalciferol (vitamin D3) 25 mcg (1,000 unit) capsule 50 mcg PO DAILY omega 4-kcl-ehf-fish oil 1,200 (144-216) mg capsule 2,400 cap PO DAILY metoprolol succinate 25 mg tablet extended release 24 hr 25 mg PO DAILY Qty: 90 3RF clopidogrel 75 mg Tablet 75 mg PO DAILY Qty: 90 3RF nitroglycerin 0.4 mg Tablet, Sublingual 0.4 mg sublingual Q5M PRN (Reason: Chest Pain) Qty: 30 1RF atorvastatin [Lipitor] 40 mg tablet 40 mg PO BEDTIME Discharge Order = DC NOW: Discharge Order (Routine); Ordered 09/22/25 Ordered By: Crow Jacobs Referrals: Brian Diamond MD [Primary Care Provider, Family Practice] - 10/02/25 11:30 am Carlos Alvarez MD [Physician, Cardiology] - 09/28/25 9:00 am Referral Note: Keep your cardiology appointment with Dr Alvarez on September 28 at 9 AM. Patient Instructions: Coronary Artery Disease (DC), Supraventricular Tachycardia (DC), Coronary Angioplasty (DC), Opioid Safety, Patient Portal & Annelise Instructions Activity Restrictions/Additional Instructions: Increase activity as tolerated. Return for exertional chest pain unrelieved by nitroglycerin Discharge Attestations Time Spent in Discharge Care*: greater than 30 min Time Spent in Smoking Cessation: Patient does not smoke cigarettes Quality Metrics Clinical Quality Measures [ No reported AMI, CVA or VTE this stay] Coding Level of Care Code Acute Code for [facility] Diagnoses Coronary artery disease I25.10 RBBB I45.10 Unstable angina I20.0 Time Spent (min) 35
[2025-09-22 10:31] VITALS: BP 117/84; PULSE 66; O2SAT 93
--- NOTE | 2025-09-22 12:42 | PC.NURSE ---
Discharge Note Patient discharged to home via private vehicle accompanied by . Discharge instructions reviewed with patient and/or reimbursement representative. Mobile pharmacy medications and/or prescriptions provided. Belongings/home medications returned. chest pain stoplight and post angiogram activity and wound care discussed to pt and .
== END 2025-09-22 10:53 | disposition home or self-care (01) | DRG 322 ==
LOC: ER 12:01 → CSU 15:17
PROVIDERS: Internal Medicine Cardiovascular Disease; Admitting Provider Internal Medicine; Emergency Provider Family Medicine; PCP Family Medicine Geriatric Medicine; Visit Provider Internal Medicine
PROC: 027034Z Dilation of Coronary Artery, One Artery with Drug-eluting Intraluminal Device, Percutaneous Approach (ICD-10-PCS; principal; 2025-09-21 07:00)
PROC: 027034Z Dilation of Coronary Artery, One Artery with Drug-eluting Intraluminal Device, Percutaneous Approach (ICD-10-PCS; 2025-09-21 07:00)
DX: I25.110 Atherosclerotic heart disease of native coronary artery with unstable angina pectoris (principal); Z82.49 Family history of ischemic heart disease and other diseases of the circulatory system; Z87.891 Personal history of nicotine dependence; Z88.0 Allergy status to penicillin; Z79.82 Long term (current) use of aspirin; Z95.5 Presence of coronary angioplasty implant and graft; I45.10 Unspecified right bundle-branch block; E78.2 Mixed hyperlipidemia; K59.00 Constipation, unspecified; Z79.02 Long term (current) use of antithrombotics/antiplatelets
CPT/HCPCS: 36415; 80048; 80053; 84484; 85025; 85347; 85730; 92920; 93005; 93454; 94664; 96365; 96375; 96376; 99152; 99153; 99285; C1725; C1769; C1874; C1887; C1894; C9600; J1644; J2250; J2405; J3010; J3490; J7030; J9999; Q0163; Q9967

== ENCOUNTER → 2025-09-27 09:28 | Outpatient (BNVA) | payer OTHER, SELFPAY | PROVIDERS: PCP Family Medicine Geriatric Medicine; Visit Provider Specialist | DX: M19.011 Primary osteoarthritis, right shoulder (principal); M19.012 Primary osteoarthritis, left shoulder | CPT/HCPCS: 20610; 73030; 99205; J1100; J2795; J3301; J9999 ==

== ENCOUNTER → 2025-09-28 07:33 | Outpatient (BNVA) | payer OTHER, SELFPAY | PROVIDERS: PCP Family Medicine Geriatric Medicine; Visit Provider Podiatrist Foot & Ankle Surgery | DX: Z09 Encounter for follow-up examination after completed treatment for conditions other than malignant neoplasm (principal); M79.671 Pain in right foot; I77.810 Thoracic aortic ectasia; I45.10 Unspecified right bundle-branch block; I47.10 Supraventricular tachycardia, unspecified; I25.10 Atherosclerotic heart disease of native coronary artery without angina pectoris; Z95.5 Presence of coronary angioplasty implant and graft | CPT/HCPCS: 73630; 99203; 99214 ==